=== PATIENT | male | born 1960 | race Caucasian/White ===

== ENCOUNTER 2023-11-21 13:26 | Observation (INO) ==
[2023-11-21 14:12] LABS: ABS Basophils 0.1 10^3/uL (0.0-0.1); ABS Eosinophils 0.1 10^3/uL (0.0-0.5); ABS Lymphocytes 1.1 10^3/uL (1.0-4.8); ABS Monocytes 0.5 10^3/uL (0.0-1.1); ABS Neutrophils 4.3 10^3/uL (1.5-7.6); Eosinophil % 1.3 %; Hematocrit 42.2 % (38-53); Hemoglobin 14.4 g/dL (13.2-16.3); Lymphocyte % 18.3 %; Mean Corpuscular Hemoglobin 30.2 pg (27-33); Mean Corpuscular Volume 88.7 fL (80-97); Mean Platelet Volume 9.3 fL (7.5-11.2); Nucleated Red Blood Cells % 0.1 %/100WBC (0.0-0.8); Platelet Count 187 10^3/uL (150-450); Red Blood Count 4.76 10^6/uL (4.06-5.63)
[2023-11-21 14:24] LABS: INR 0.97 (0.83-1.13)
[2023-11-21] MEDS: NS 0.9% 1000 ml BAG 1,000 ML IV ONE (14:30)
[2023-11-21] MEDS: Ondansetron 4 mg VIAL 2 MG/ML 2 ml VIAL IV ONE (14:30)
[2023-11-21 15:05] LABS: Albumin 4.4 g/dL (3.2-5.2); Albumin/Globulin Ratio 1.8 (1-3); Calcium 9.8 mg/dL (8.6-10.3); Creatinine, Serum 1.15 mg/dL (0.67-1.17); Globulin 2.4 g/dL (2-4); Potassium 3.2 mmol/L (3.5-5.0); Total Bilirubin 0.9 mg/dL (0.2-1.0); Total Protein 6.8 g/dL (6.4-8.9); eGFR CKD-EPI 71.5 (>60)
[2023-11-21 15:37] LABS: High Sensitivity Troponin 1 Hr 3 pg/mL (<20)
[2023-11-21] MEDS: Iodixanol (CONTRAST) 320 MG/ML 100 ML SDV IV ONE (16:13)
[2023-11-21] MEDS ORDERED: Senna TAB 8.6 mg TAB PO PRN (17:40)
[2023-11-21] MEDS ORDERED: Ondansetron 4 mg VIAL 2 MG/ML 2 ml VIAL IV PRN (17:40)
[2023-11-21] MEDS ORDERED: Polyethylene Glycol 3350 17 GM PACKET PO PRN (17:40)
[2023-11-21] MEDS ORDERED: Dextrose 50% Syringe 50 ml 25 GM/50 ML SYRINGE IV PUSH PRN (18:42)
[2023-11-21] MEDS: Potassium Chlor 20 meq TAB.ER PO ONE (18:54)
[2023-11-21] MEDS: Enoxaparin 40 MG/0.4 ML SYR SUBCUT SCH (18:58)
[2023-11-21] MEDS: Lactated Ringers 1000 ml BAG 1,000 ML IV ONE (18:58)
[2023-11-22 06:42] LABS: Calcium 9.1 mg/dL (8.6-10.3); Creatinine, Serum 1.06 mg/dL (0.67-1.17); Potassium 3.9 mmol/L (3.5-5.0); eGFR CKD-EPI 78.9 (>60)
[2023-11-22 09:17] VITALS: BP 118/69
[2023-11-22] MEDS: NEBIVOLOL 2.5 MG PO SCH (10:20)
== END 2023-11-22 12:45 | disposition home or self-care (01) ==
LOC: ED 13:26 → EDHOLD 13:26 → MED 21:57
PROVIDERS: ADMIT Student in an Organized Health Care Education/Training Program; ATTEND Student in an Organized Health Care Education/Training Program